=== PATIENT | female | born 1955 | race Two or more races ===

== ENCOUNTER 2016-09-17 12:55 | Emergency (ER) | payer OTHER ==
[2016-09-17 13:13] VITALS: BP 132/73; PULSE 59; TEMP 98; BMI 27.4
[2016-09-17] MEDS ORDERED: ACETAMINOPHEN 325 MG TABLET (FP) PO ONE (13:48)
[2016-09-17] MEDS ORDERED: ACETAMINOPHEN 325 MG TABLET (FP) ONE (13:52)
--- NOTE | 2016-09-17 13:54 | PDOC ---
History of Present Illness - General Chief Complaint: Injury Stated Complaint: INJURY Time Seen by Provider: 09/17/16 13:29 History Source: Patient Exam Limitations: No Limitations - History of Present Illness Initial Comments: 09/17/16 13:50 61 yr female with c/o head trauma last night states a window frame she was cleaning fell on her head, no LOC. Pt also has abrasion to her forehead. Pt has history of hypothyroid on synthroid. unknown tetanus status. pt c/o headache Past History - Past Medical History Allergies/Adverse Reactions: Allergies Allergy/AdvReac Type Severity Reaction Status Date / Time No Known Allergies Allergy Verified 09/17/16 13:11 Home Medications: Ambulatory Orders NK [No Known Home Medication] 09/17/16 GI Disorders: Yes (gerd) - Immunization History Immunization Up to Date: Yes - Psycho/Social/Smoking Cessation Hx Anxiety: No Suicidal Ideation: No Smoking Status: No Smoking History: Never smoked Number of Cigarettes Smoked Daily: 0 Cigars Per Day: 0 *Physical Exam - Vital Signs Last Vital Signs Temp Pulse Resp BP Pulse Ox 98 F 59 L 18 132/73 100 09/17/16 13:12 09/17/16 13:12 09/17/16 13:12 09/17/16 13:12 09/17/16 13:12 - Physical Exam General Appearance: Yes: Nourished, Appropriately Dressed HEENT: positive: EOMI, [place], Normal ENT Inspection, TMs Normal, Pharynx Normal, Other (midline forehead with superficial abrasion 2.5cm dried healing ) Neck: positive: Supple. negative: Tender, Tender lateral, Tender midline Respiratory/Chest: positive: Lungs Clear, Normal Breath Sounds. negative: Chest Tender Cardiovascular: positive: Regular Rhythm, Regular Rate Gastrointestinal/Abdominal: positive: Normal Bowel Sounds, Soft Musculoskeletal: positive: Normal Inspection Extremity: positive: Normal Capillary Refill, Normal Inspection, Normal Range of Motion Integumentary: positive: Normal Color, Dry, Warm Neurologic: positive: Fully Oriented, Alert, Normal Mood/Affect, Normal Response , Motor Strength 5/5, Other (neg palpbale hematoma, tender to parietal area on palpation no step off ) ED Treatment Course - RADIOLOGY Radiology Studies Ordered: Category Date Time Status HEAD CT WITHOUT CONTRAST [CT] Stat CT Scan 09/17/16 13:48 Ordered Medical Decision Making - Medical Decision Making 09/17/16 14:38 cc: head trauma last evening around 5pm no LOC no nv no dizzyness c/o headache did not take any meds for headache will get head CT update tetanus, tylenol 09/17/16 15:10 *DC/Admit/Observation/Transfer Diagnosis at time of Disposition: Headache due to trauma Qualifiers: Headache chronicity pattern: acute headache Intractability: not intractable Qualified Code(s): G44.319 - Acute post-traumatic headache, not intractable - Discharge Dispostion Disposition: HOME Condition at time of disposition: Good - Referrals Referrals: Christiano Frost MD [Primary Care Provider] - - Patient Instructions Additional Instructions: drink pleanty of water apply bacitracin to the abrasion once or twice a day take tylenol 650mg every 4-6hrs for headache follow with your doctor tomorrow if you continue to have headaches Return to ER if any worsening symptoms
[2016-09-17] MEDS ORDERED: DIPHTH,PERTUSS(ACELL),TET 0.5 ML DISP.SYRIN IM ONE (14:17)
== END 2016-09-17 15:18 | disposition home or self-care (01) ==
LOC: JERFT 12:55
PROC: 3E0234Z Introduction of Serum, Toxoid and Vaccine into Muscle, Percutaneous Approach (ICD-10-PCS; principal; 2016-09-17)
DX: G44.319 Acute post-traumatic headache, not intractable (principal); W20.8XXA Other cause of strike by thrown, projected or falling object, initial encounter; Y93.E9 Activity, other interior property and clothing maintenance; Y92.009 Unspecified place in unspecified non-institutional (private) residence as the place of occurrence of the external cause; E03.9 Hypothyroidism, unspecified; K21.9 Gastro-esophageal reflux disease without esophagitis
CPT/HCPCS: 70450-TC; 90715; 99281-25

== ENCOUNTER 2020-04-14 21:32 | Emergency (ER) | payer OTHER ==
[2020-04-14 21:51] VITALS: BP 152/91; PULSE 82; TEMP 99.5; BMI 32.8
== END 2020-04-15 | disposition home or self-care (01) ==
LOC: JER 21:32
DX: R50.9 Fever, unspecified (principal); R05 Cough
CPT/HCPCS: 71046-TC-FY; 87804; 99284-25; C9803; U0003